=== PATIENT | female | born 1965 | race African-American/Black ===

== ENCOUNTER 2017-04-13 08:28 | Day surgery (SDC) | payer MEDICARE, OTHER ==
[2017-04-08 11:11] LABS: BUN (BLOOD UREA NITROGEN) 9 MG/DL (6-23); CALCIUM, SERUM 9.4 MG/DL (8.5-10.4); CHLORIDE, SERUM 105 MMOL/L (96-112); CO2 (CARBON DIOXIDE) 30 MMOL/L (24-34); CREATININE 0.57 MG/DL (0.55-1.02); GFR AFRICAN AMERICAN 125 ML/MIN (>=60); GFR NON AFRICAN AMERICAN 108 ML/MIN (>=60); GLUCOSE, SERUM 116 MG/DL (60-99); POTASSIUM, SERUM 3.6 MMOL/L (3.5-5.3); SODIUM, SERUM 139 MMOL/L (135-148)
[2017-04-08 11:33] LABS: HEMATOCRIT 39.5 % (36.0-48.0); HEMOGLOBIN 12.9 g/dL (12.0-16.0)
--- NOTE | ~2017-04-13 | OP ---
Record Of Operation [facility] [address] [place]. [address] NAME: FAIZA BECKWITH : 69 STATUS : [facility]#: [id number] AGE: 52 ADM/REG DATE : 04/13/17 MR#: [id number] REPORT SERV DATE: 04/13/17 DICTATED BY: VICKIE GUTHRIE DATE: 04/13/17 REPORT STATUS : Draft TRANSCRIBED BY: GEN DATE: 04/13/17 DATE OF PROCEDURE: PREPROCEDURE DIAGNOSIS: Rectal polyp. POSTPROCEDURE DIAGNOSIS: Hypertrophic papilla. ONLINE PRODUCER: Eduar. PROCEDURE: Exam under anesthesia, excision of hypertrophic papilla, proctoscopy with no other lesions noted. DESCRIPTION OF PROCEDURE: The patient was taken to the operating room, induced under general anesthesia, prepped and draped in the usual sterile fashion after being placed in the prone reginaldo-knife position. First, a pudendal nerve block was placed with a total of 10 mL of a 1:1 mixture of 1% lidocaine and 0.25% Sensorcaine injected locally and bilaterally. Following that, first, proctoscopy was performed using a rigid proctoscope. This was all the way to 25 cm to the rectosigmoid junction. While prep was only moderately adequate, there was some stool in the vault. The mucosa was visualized circumferentially. No other polyps were noted other than hypertrophic papilla at the dentate line at the anterior midline. This polyp did measure 2 cm in length. Then the proctoscope was removed. A Hill- Shah retractor was placed, small, then medium. The hypertrophic papilla was elevated, transected at its base. The patient was cleaned and dried followed by two 4x4s, peripad, and mesh panties. She tolerated the procedure well. ABBE/GEN Vickie Guthrie M.D. / [id number] CC: Rasheeda Goetz MD William M. Cooney, MD Davey B. Daniel, M.D.
[~2017-04-13 08:28] MED LIST: ALEVE220 MG PO; ARIMIDEX1 PO; BC POWDER PO; BREO ELLIPTA 21 EACH INH; C5; CHEMO THERAPY IV; CLEAR EYE1 OPH; FLONASE NAS; GLUCPH PO; L20 PO; LIPITOR10 PO; MEG40 PO; NEUR300 PO; NORCO1 TA2 PO; NORCO1 TAB PO; NORV5 PO; PROTONIX PO; SINGULAIR1 PO; VASERETIC10 PO
== END 2017-04-13 14:27 | disposition home or self-care (01) ==
LOC: SDC 08:28
PROVIDERS: Surgery
PROC: 3E0T3BZ Introduction of Anesthetic Agent into Peripheral Nerves and Plexi, Percutaneous Approach (ICD-10-PCS; 2017-04-13)
PROC: 0DBQXZZ Excision of Anus, External Approach (ICD-10-PCS; principal; 2017-04-13 10:45)
PROC: 0DJD8ZZ Inspection of Lower Intestinal Tract, Via Natural or Artificial Opening Endoscopic (ICD-10-PCS; 2017-04-13 10:45)
DX: K62.89 Other specified diseases of anus and rectum (principal); I10 Essential (primary) hypertension; C34.92 Malignant neoplasm of unspecified part of left bronchus or lung; C34.91 Malignant neoplasm of unspecified part of right bronchus or lung; J44.9 Chronic obstructive pulmonary disease, unspecified; G47.33 Obstructive sleep apnea (adult) (pediatric); M81.0 Age-related osteoporosis without current pathological fracture; M19.90 Unspecified osteoarthritis, unspecified site; D25.9 Leiomyoma of uterus, unspecified; F41.9 Anxiety disorder, unspecified; F32.9 Major depressive disorder, single episode, unspecified; E11.9 Type 2 diabetes mellitus without complications; E66.01 Morbid (severe) obesity due to excess calories; Z68.41 Body mass index [BMI] 40.0-44.9, adult; Z87.42 Personal history of other diseases of the female genital tract; Z90.710 Acquired absence of both cervix and uterus; Z88.5 Allergy status to narcotic agent; Z79.811 Long term (current) use of aromatase inhibitors; Z79.51 Long term (current) use of inhaled steroids; Z79.84 Long term (current) use of oral hypoglycemic drugs; Z79.899 Other long term (current) drug therapy
CPT/HCPCS: 80048; 82962; 85014; 85018; 88304; 88305; 93005; A9270-GY; J0330; J1885; J2250; J2370; J2405; J2795; J3010